=== PATIENT | female | born 1940 | race Caucasian/White ===

== ENCOUNTER 2018-02-17 13:54 | Outpatient (CLI) | payer MEDICARE ==
[2018-02-17 14:15] LABS: #Basophils 0.1 thou/uL (0.0-0.2); #Eosinphils 0.2 thou/uL (0.0-0.7); #Lymphocytes 1.8 thou/uL (1.20-3.40); #Monocytes 0.6 thou/uL (0.11-0.59); %Basophils 1.3 % (0.0-1.0); %Eosinophils 3.6 % (0.0-10.0); %Lymphocytes 31.8 % (21.0-51.0); %Monocytes 9.7 % (0.0-10.0); %Neutrophils 53.5 % (42.0-75.0); Hemoglobin 15.2 g/dL (12.0-16.0); Mean Corpuscular HGB CONC 32.9 g/dL (32.0-36.0); Mean Corpuscular Hemoglobin 30.4 pg (27.0-31.0); Mean Corpuscular Volume 92.4 fL (78.0-98.0); Mean Platelet Volume 10.5 fL (7.4-10.4); Platelet Count 218 thou/uL (130-400); RBC Distribution Width 11.5 % (11.5-14.5); Red Blood Cell (RBC) Count 5.01 mill/uL (4.20-5.40); White Blood Cell (WBC) Count 5.6 thou/uL (4.8-10.8)
[2018-02-17 14:30] LABS: ALT (SGPT) 18 U/L (8-55); AST (SGOT) 19 U/L (5-34); Albumin 4.3 g/dL (3.4-4.8); Alkaline Phosphatase 86 U/L (40-150); Anion Gap 15 mmol/L (10-20); BUN (Urea Nitrogen) 13 mg/dL (9.8-20.1); Calc. Creatinine Clearance 0 mL/min (70-130); Calcium 9.5 mg/dL (7.8-10.44); Carbon Dioxide 22 mmol/L (23-31); Chloride 106 mmol/L (98-107); Estimated GFR-MDRD 66; Globulin 2.7 g/dL (2.4-3.5); Glucose 93 mg/dL (83-110); Potassium 4.2 mmol/L (3.5-5.1); Sodium 139 mmol/L (136-145)
[2018-02-17 23:44] LABS: Folate (Folic Acid) 7.1 ng/mL (7.0-31.4)
== END 2018-02-17 13:55 | disposition home or self-care (01) ==
LOC: MADLABBHPM 13:54
PROVIDERS: ATTEND Family Medicine
DX: R01.1 Cardiac murmur, unspecified (principal); R42 Dizziness and giddiness; R41.3 Other amnesia
CPT/HCPCS: 36415; 80053; 82140; 82607; 82746; 84443; 85025; 93005; 93010

== ENCOUNTER 2018-06-02 09:25 | Outpatient (CLI) | payer MEDICARE ==
[2018-06-02 10:55] LABS: Prothrombin Time 12.9 SEC (12.0-14.7)
[2018-06-02 11:02] LABS: #Basophils 0.1 thou/uL (0.0-0.2); #Eosinphils 0.2 thou/uL (0.0-0.7); #Lymphocytes 1.3 thou/uL (1.20-3.40); #Monocytes 0.4 thou/uL (0.11-0.59); #Neutrophils 2.3 thou/uL (1.40-6.50); %Basophils 1.5 % (0.0-1.0); %Eosinophils 4.2 % (0.0-10.0); %Monocytes 8.9 % (0.0-10.0); %Neutrophils 54.4 % (42.0-75.0); Hemoglobin 14.2 g/dL (12.0-16.0); Mean Corpuscular Hemoglobin 29.3 pg (27.0-31.0); Mean Corpuscular Volume 91.7 fL (78.0-98.0); Mean Platelet Volume 9.9 fL (7.4-10.4); Platelet Count 166 thou/uL (130-400); RBC Distribution Width 12.5 % (11.5-14.5); Red Blood Cell (RBC) Count 4.86 mill/uL (4.20-5.40); White Blood Cell (WBC) Count 4.2 thou/uL (4.8-10.8)
[2018-06-02 11:04] LABS: Anion Gap 13 mmol/L (10-20); BUN (Urea Nitrogen) 11 mg/dL (9.8-20.1); Calc. Creatinine Clearance 0 mL/min (70-130); Carbon Dioxide 25 mmol/L (23-31); Chloride 106 mmol/L (98-107); Estimated GFR-MDRD 71; Glucose 79 mg/dL (83-110); Potassium 4.5 mmol/L (3.5-5.1); Sodium 139 mmol/L (136-145)
== END 2018-06-02 09:26 | disposition home or self-care (01) ==
LOC: MADLAB 09:25
PROVIDERS: ATTEND Internal Medicine Cardiovascular Disease
DX: I34.0 Nonrheumatic mitral (valve) insufficiency (principal)
CPT/HCPCS: 36415; 80048; 85025; 85610

== ENCOUNTER 2018-07-19 11:03 | Outpatient (CLI) | payer MEDICARE ==
[2018-07-19 11:29] LABS: Bilirubin Negative (Negative); Blood, Urine Negative (Negative); Clarity Clear (Clear); Glucose, Urine (Dipstick) Negative (Negative); Leukocyte Negative (Negative); Nitrite Negative (Negative); Protein, Urine (Dipstick) Negative (Neg-Trace); Urobilinogen 0.2 mg/dL (0.2-1.0)
[2018-07-19 11:32] LABS: Specific Gravity, Urine 1.006 (1.002-1.036)
[2018-07-19 11:38] LABS: Bacteria/HPF Rare-Few HPF (None Seen); RBC/HPF 0-3 HPF (0-3); Squamous Epithelial 0-3 HPF (0-3); WBC/HPF 0-3 HPF (0-3)
--- NOTE | 2018-07-19 11:38 | RAD ---
2 views chest: 07/19/2018 COMPARISON: 02/24/2013 HISTORY: Preoperative patient FINDINGS: There is a shoulder arthroplasty on the left. There is mild dextroscoliosis at the thoracol umbar junction. Heart and mediastinal contours are stable. There is atherosclerotic calcification of the aortic arch. Old lateral left-sided rib fractures are present. There is mild increased linear interstitial density. No pneumothorax or pleural fluid. No focal conso lidation or alveolar edema. IMPRESSION: No acute findings. Chronic/incidental findings as detailed above.
[2018-07-19 11:40] LABS: #Basophils 0.1 thou/uL (0.0-0.2); #Eosinphils 0.2 thou/uL (0.0-0.7); #Lymphocytes 1.2 thou/uL (1.20-3.40); #Monocytes 0.4 thou/uL (0.11-0.59); #Neutrophils 3.9 thou/uL (1.40-6.50); %Basophils 1.2 % (0.0-1.0); %Eosinophils 2.8 % (0.0-10.0); %Lymphocytes 21.1 % (21.0-51.0); %Monocytes 7.4 % (0.0-10.0); %Neutrophils 67.6 % (42.0-75.0); Mean Corpuscular Volume 90.7 fL (78.0-98.0); Mean Platelet Volume 8.7 fL (7.4-10.4); Platelet Count 200 thou/uL (130-400); RBC Distribution Width 12.4 % (11.5-14.5); Red Blood Cell (RBC) Count 4.82 mill/uL (4.20-5.40); White Blood Cell (WBC) Count 5.8 thou/uL (4.8-10.8)
[2018-07-19 11:42] LABS: PTT 26.6 SEC (22.9-36.1); Prothrombin Time 13.3 SEC (12.0-14.7)
[2018-07-19 11:48] LABS: Anion Gap 15 mmol/L (10-20); BUN (Urea Nitrogen) 9 mg/dL (9.8-20.1); Calc. Creatinine Clearance 0 mL/min (70-130); Calcium 8.9 mg/dL (7.8-10.44); Carbon Dioxide 21 mmol/L (23-31); Chloride 108 mmol/L (98-107); Estimated GFR-MDRD 72; Glucose 81 mg/dL (83-110); Potassium 4.3 mmol/L (3.5-5.1); Sodium 140 mmol/L (136-145)
== END 2018-07-19 11:04 | disposition home or self-care (01) ==
LOC: MADLAB 11:03
DX: Z01.818 Encounter for other preprocedural examination (principal); I34.0 Nonrheumatic mitral (valve) insufficiency
CPT/HCPCS: 36415; 71046; 80048; 81001; 85025; 85610; 85730

== ENCOUNTER 2018-08-23 11:55 | Outpatient (CLI) | payer MEDICARE ==
[2018-08-23 13:07] LABS: Prothrombin Time 53.1 SEC (12.0-14.7)
== END 2018-08-23 11:56 | disposition home or self-care (01) ==
LOC: MADLAB 11:55
PROVIDERS: ATTEND Surgery
DX: Z51.81 Encounter for therapeutic drug level monitoring (principal); Z79.01 Long term (current) use of anticoagulants
CPT/HCPCS: 85610

== ENCOUNTER 2018-08-23 15:23 | Outpatient (CLI) | payer MEDICARE ==
[2018-08-23 15:42] LABS: #Basophils 0.1 thou/uL (0.0-0.2); #Eosinphils 0.2 thou/uL (0.0-0.7); #Lymphocytes 2.1 thou/uL (1.20-3.40); #Neutrophils 5.9 thou/uL (1.40-6.50); %Basophils 1.2 % (0.0-1.0); %Eosinophils 2.2 % (0.0-10.0); %Lymphocytes 22.2 % (21.0-51.0); %Monocytes 10.9 % (0.0-10.0); %Neutrophils 63.5 % (42.0-75.0); Hemoglobin 11.2 g/dL (12.0-16.0); Mean Corpuscular Hemoglobin 27.8 pg (27.0-31.0); Mean Corpuscular Volume 86.6 fL (78.0-98.0); Platelet Count 547 thou/uL (130-400); RBC Distribution Width 12.5 % (11.5-14.5); Red Blood Cell (RBC) Count 4.05 mill/uL (4.20-5.40); White Blood Cell (WBC) Count 9.3 thou/uL (4.8-10.8)
[2018-08-23 16:04] LABS: Prothrombin Time 57.5 SEC (12.0-14.7)
[2018-08-23 16:14] LABS: INR-International Normal Ratio 6.7
== END 2018-08-23 15:24 | disposition home or self-care (01) ==
LOC: MADLABBHPM 15:23
PROVIDERS: ATTEND Family Medicine
DX: Z51.81 Encounter for therapeutic drug level monitoring (principal); Z79.01 Long term (current) use of anticoagulants; Z95.2 Presence of prosthetic heart valve
CPT/HCPCS: 36415; 85025

== ENCOUNTER 2018-08-26 15:14 | Outpatient (CLI) | payer MEDICARE ==
[2018-08-26 15:46] LABS: Prothrombin Time 41.8 SEC (12.0-14.7)
[2018-08-26 16:01] LABS: INR-International Normal Ratio 4.4
== END 2018-08-26 15:15 | disposition home or self-care (01) ==
LOC: MADLABBHPM 15:14
PROVIDERS: ATTEND Family Medicine
DX: Z51.81 Encounter for therapeutic drug level monitoring (principal); Z79.1 Long term (current) use of non-steroidal anti-inflammatories (NSAID)
CPT/HCPCS: 36415; 85610

== ENCOUNTER 2019-04-01 13:00 | Emergency (ER) | payer MEDICARE ==
[~2019-04-01 13:00] MED LIST: Sodium Chloride Irrig Solution 250 ML BOT ONE
--- NOTE | 2019-04-01 13:37 | CT ---
EXAM: Brain CT scan Without contrast: HISTORY: Injury COMPARISON: None FINDINGS: Atrophy and chronic white matter ischemic change. No focal mass or midline shift. No intra or extra-axial hemorrhage. The visualized sinuses and mastoids are clear of acute process. IMPRESSION: No mass or bleed or other significant acute intracranial process.
--- NOTE | 2019-04-01 13:42 | CT ---
EXAM: CT scan cervical spineWithout contrast: HISTORY: Injury COMPARISON: None FINDINGS: There is some scoliotic deformity of the upper thoracic lower cervical spine. No evidence for acute fracture or dislocation. No prevertebral soft tissue swelling. Pleural and pleural-based parenchymal changes in the apices having more chronic change. 1.1 cm left thyroid nodule. Significant spondylosis. Artifact somewhat lowers the sensitivity of this study. IMPRESSION: No evidence for acute fracture or facet dislocation or other significant acute process.
--- NOTE | 2019-04-01 13:52 | RAD ---
Exam: XR Knee Lt 3 View HISTORY: Left knee injury COMPARISON: None FINDINGS: No acute fracture, dislocation, or other acute osseous abnormality is identified. IMPRESSION: No acute osseous abnormality is identified.
--- NOTE | 2019-04-01 13:56 | RAD ---
EXAM: CHEST ONE VIEW HISTORY: Injury COMPARISON: 02/24/2013 FINDINGS: Cardiac silhouette is magnified by projection. Pulmonary vasculature is within normal limits. The rojelio gs are clear. Left glenohumeral prosthesis is now present. Remote left-sided rib fractures are again seen. No definite acute fracture is visualized. Vascular calcifications are seen in the thoraci c aorta. IMPRESSION: No acute cardiopulmonary process.
[2019-04-01 14:02] LABS: #Basophils 0.1 thou/uL (0.0-0.2); #Eosinphils 0.2 thou/uL (0.0-0.7); #Lymphocytes 0.9 thou/uL (1.20-3.40); #Monocytes 0.5 thou/uL (0.11-0.59); #Neutrophils 6.4 thou/uL (1.40-6.50); %Basophils 1.3 % (0.0-1.0); %Eosinophils 1.9 % (0.0-10.0); %Lymphocytes 11.4 % (21.0-51.0); %Monocytes 6.3 % (0.0-10.0); %Neutrophils 79.1 % (42.0-75.0); Hemoglobin 15.6 g/dL (12.0-16.0); Mean Corpuscular HGB CONC 30.8 g/dL (32.0-36.0); Mean Corpuscular Hemoglobin 28.4 pg (27.0-31.0); Mean Corpuscular Volume 92.3 fL (78.0-98.0); Mean Platelet Volume 9.6 fL (7.4-10.4); Platelet Count 234 thou/uL (130-400); RBC Distribution Width 12.4 % (11.5-14.5); White Blood Cell (WBC) Count 8.1 thou/uL (4.8-10.8)
[2019-04-01 14:09] LABS: INR-International Normal Ratio 0.9; Prothrombin Time 12.2 SEC (12.0-14.7)
[2019-04-01 14:20] LABS: ALT (SGPT) 41 U/L (8-55); AST (SGOT) 40 U/L (5-34); Albumin 4.3 g/dL (3.4-4.8); Alkaline Phosphatase 167 U/L (40-110); Anion Gap 19 mmol/L (10-20); BUN (Urea Nitrogen) 18 mg/dL (9.8-20.1); Bilirubin, Total 1.6 mg/dL (0.2-1.2); Calc. Creatinine Clearance 0 mL/min (70-130); Calcium 9.1 mg/dL (7.8-10.44); Carbon Dioxide 22 mmol/L (23-31); Chloride 104 mmol/L (98-107); Estimated GFR-MDRD 50; Globulin 3.5 g/dL (2.4-3.5); Glucose 105 mg/dL (83-110); Potassium 4.7 mmol/L (3.5-5.1); Protein, Total 7.8 g/dL (6.0-8.3); Sodium 140 mmol/L (136-145)
[2019-04-01] MEDS ORDERED: Lidocaine 1% w/Epinephrine 1:100K 20 ML VIAL ONE (14:53)
[2019-04-01] MEDS ORDERED: Adacel (T-DAP) 0.5 ML SYRINGE ONE (15:23)
== END 2019-04-01 15:45 | disposition home or self-care (01) ==
LOC: MADERS 13:00
DX: S01.312A Laceration without foreign body of left ear, initial encounter (principal); S80.01XA Contusion of right knee, initial encounter; I25.10 Atherosclerotic heart disease of native coronary artery without angina pectoris; I10 Essential (primary) hypertension; E78.5 Hyperlipidemia, unspecified; Z23 Encounter for immunization; Z79.82 Long term (current) use of aspirin; Z79.899 Other long term (current) drug therapy; Z87.891 Personal history of nicotine dependence; W19.XXXA Unspecified fall, initial encounter
CPT/HCPCS: 12011; 70450; 71045; 72125; 80053; 84484; 85025; 85610; 90471; 90715; 93005

== ENCOUNTER 2019-04-06 10:36 | Outpatient (CLI) | payer MEDICARE ==
--- NOTE | 2019-04-06 11:08 | RAD ---
EXAM: XR Hip Lt 2-3 View PROVIDED CLINICAL HISTORY: Pain status post injury COMPARISON: 03/01/2019 FINDINGS: Nondisplaced fractures of the left superior and inferior pubic rami are demonstrated. No additional f racture is evident. Left hip joint space appears preserved. Surgical clips overlie the left inguinal region. IMPRESSION: Nondisplaced left superior and inferior pubic rami fractures.
[2019-04-06 11:44] LABS: ALT (SGPT) 43 U/L (8-55); AST (SGOT) 36 U/L (5-34); Albumin 3.9 g/dL (3.4-4.8); Alkaline Phosphatase 130 U/L (40-110); Anion Gap 15 mmol/L (10-20); BUN (Urea Nitrogen) 14 mg/dL (9.8-20.1); Bilirubin, Total 1.6 mg/dL (0.2-1.2); Calc. Creatinine Clearance 0 mL/min (70-130); Calcium 9.1 mg/dL (7.8-10.44); Carbon Dioxide 25 mmol/L (23-31); Cardiac Risk 2.5 (Less than 4.5); Chloride 103 mmol/L (98-107); Cholesterol 141 mg/dl (< 200 Desired); Estimated GFR-MDRD 69; Globulin 2.8 g/dL (2.4-3.5); Glucose 90 mg/dL (83-110); HDL Cholesterol 57 mg/dL (>60 Neg Risk); LDL Cholesterol, Calculated 67 mg/dL; Potassium 4.5 mmol/L (3.5-5.1); Protein, Total 6.7 g/dL (6.0-8.3); Sodium 138 mmol/L (136-145); Triglycerides 86 mg/dL (Less than 150)
[2019-04-06 17:10] LABS: Hemoglobin A1c 5.1 % (4.0-6.0)
== END 2019-04-06 10:37 | disposition home or self-care (01) ==
LOC: MADLAB 10:36
PROVIDERS: ATTEND Family Medicine
DX: G45.9 Transient cerebral ischemic attack, unspecified (principal); M25.552 Pain in left hip; S32.592A Other specified fracture of left pubis, initial encounter for closed fracture
CPT/HCPCS: 36415; 80053; 80061; 83036

== ENCOUNTER 2019-05-11 11:04 | Outpatient (CLI) | payer MEDICARE ==
[2019-05-11 15:09] LABS: Prothrombin Time 12.8 SEC (12.0-14.7)
== END 2019-05-11 11:05 | disposition home or self-care (01) ==
LOC: MADLABBHPM 11:04
PROVIDERS: ATTEND Family Medicine
DX: Z51.81 Encounter for therapeutic drug level monitoring (principal); Z79.01 Long term (current) use of anticoagulants
CPT/HCPCS: 36415; 85610; 85730

== ENCOUNTER 2019-05-14 13:36 | Emergency (ER) | payer MEDICARE | END 2019-05-14 14:09 | disposition home or self-care (01) | LOC: MADERS 13:36 | DX: K59.00 Constipation, unspecified (principal); E78.5 Hyperlipidemia, unspecified; I10 Essential (primary) hypertension; I25.10 Atherosclerotic heart disease of native coronary artery without angina pectoris; Z87.891 Personal history of nicotine dependence; Z79.899 Other long term (current) drug therapy; Z79.82 Long term (current) use of aspirin | CPT/HCPCS: 99283 ==

== ENCOUNTER 2019-05-15 09:33 | Outpatient (CLI) | payer MEDICARE ==
[2019-05-15 09:44] LABS: INR-International Normal Ratio 1.1; Prothrombin Time 14.5 SEC (12.0-14.7)
== END 2019-05-15 09:34 | disposition home or self-care (01) ==
LOC: MADLABBHPM 09:33
PROVIDERS: ATTEND Family Medicine
DX: Z51.81 Encounter for therapeutic drug level monitoring (principal); Z79.02 Long term (current) use of antithrombotics/antiplatelets
CPT/HCPCS: 85610

== ENCOUNTER 2019-05-19 16:41 | Outpatient (CLI) | payer MEDICARE ==
[2019-05-19 16:46] LABS: INR-International Normal Ratio 2.8; Prothrombin Time 29.5 SEC (12.0-14.7)
== END 2019-05-19 16:42 | disposition home or self-care (01) ==
LOC: MADLAB 16:41
PROVIDERS: ATTEND Family Medicine
DX: Z51.81 Encounter for therapeutic drug level monitoring (principal); Z79.02 Long term (current) use of antithrombotics/antiplatelets
CPT/HCPCS: 85610

== ENCOUNTER 2019-05-26 10:26 | Outpatient (CLI) | payer MEDICARE ==
[2019-05-26 10:59] LABS: Prothrombin Time 47.2 SEC (12.0-14.7)
[2019-05-26 11:07] LABS: INR-International Normal Ratio 5.2
== END 2019-05-26 10:27 | disposition home or self-care (01) ==
LOC: MADLABBHPM 10:26
PROVIDERS: ATTEND Internal Medicine Cardiovascular Disease
DX: Z51.81 Encounter for therapeutic drug level monitoring (principal); Z79.02 Long term (current) use of antithrombotics/antiplatelets
CPT/HCPCS: 85610

== ENCOUNTER 2019-06-02 10:17 | Outpatient (CLI) | payer MEDICARE ==
[2019-06-02 10:37] LABS: PTT 40.4 SEC (22.9-36.1)
[2019-06-02 10:38] LABS: INR-International Normal Ratio 3.7; Prothrombin Time 36.2 SEC (12.0-14.7)
== END 2019-06-02 10:18 | disposition home or self-care (01) ==
LOC: MADLABBHPM 10:17
PROVIDERS: ATTEND Family Medicine
DX: Z51.81 Encounter for therapeutic drug level monitoring (principal); Z79.01 Long term (current) use of anticoagulants
CPT/HCPCS: 36415; 85610; 85730

== ENCOUNTER 2019-06-09 10:03 | Outpatient (CLI) | payer MEDICARE ==
[2019-06-09 10:28] LABS: INR-International Normal Ratio 2.7; PTT 30.9 SEC (22.9-36.1); Prothrombin Time 28.4 SEC (12.0-14.7)
== END 2019-06-09 10:04 | disposition home or self-care (01) ==
LOC: MADLABBHPM 10:03
PROVIDERS: ATTEND Family Medicine
DX: Z51.81 Encounter for therapeutic drug level monitoring (principal); Z79.01 Long term (current) use of anticoagulants
CPT/HCPCS: 36415; 85610; 85730

== ENCOUNTER 2019-06-16 10:30 | Outpatient (CLI) | payer MEDICARE ==
[2019-06-16 10:58] LABS: INR-International Normal Ratio 2.9; PTT 34.9 SEC (22.9-36.1); Prothrombin Time 30.2 sec (12.0-14.7)
== END 2019-06-16 10:31 | disposition home or self-care (01) ==
LOC: MADLAB 10:30
PROVIDERS: ATTEND Family Medicine
DX: Z51.81 Encounter for therapeutic drug level monitoring (principal); Z79.01 Long term (current) use of anticoagulants
CPT/HCPCS: 36415; 85610; 85730

== ENCOUNTER 2019-06-23 10:06 | Outpatient (CLI) | payer MEDICARE ==
[2019-06-23 10:29] LABS: PTT 38.6 SEC (22.9-36.1)
[2019-06-23 11:03] LABS: Prothrombin Time 40.3 sec (12.0-14.7)
[2019-06-23 11:27] LABS: INR-International Normal Ratio 4.2
== END 2019-06-23 10:07 | disposition home or self-care (01) ==
LOC: MADLAB 10:06
PROVIDERS: ATTEND Family Medicine
DX: Z51.81 Encounter for therapeutic drug level monitoring (principal); Z79.01 Long term (current) use of anticoagulants
CPT/HCPCS: 36415; 85610; 85730

== ENCOUNTER 2019-06-28 13:02 | Emergency (ER) | payer MEDICARE ==
[~2019-06-28 13:02] MED LIST changes: -Sodium Chloride Irrig Solution 250 ML BOT ONE; +Sterile Water Irrigation 250 ML BOT ONE
[2019-06-28] MEDS ORDERED: Lidocaine 1% w/Epinephrine 1:100K 20 ML VIAL ONE (13:18)
== END 2019-06-28 13:45 | disposition home or self-care (01) ==
LOC: MADERS 13:02
DX: S61.452A Open bite of left hand, initial encounter (principal); I25.10 Atherosclerotic heart disease of native coronary artery without angina pectoris; E78.5 Hyperlipidemia, unspecified; I10 Essential (primary) hypertension; Z87.891 Personal history of nicotine dependence; W54.0XXA Bitten by dog, initial encounter
CPT/HCPCS: 12001

== ENCOUNTER 2019-06-30 09:07 | Outpatient (CLI) | payer MEDICARE ==
[2019-06-30 09:55] LABS: INR-International Normal Ratio 3.7; PTT 46.6 SEC (22.9-36.1); Prothrombin Time 36.2 sec (12.0-14.7)
== END 2019-06-30 09:08 | disposition home or self-care (01) ==
LOC: MADRAD 09:07
PROVIDERS: ATTEND Family Medicine
DX: Z51.81 Encounter for therapeutic drug level monitoring (principal); Z79.01 Long term (current) use of anticoagulants
CPT/HCPCS: 36415; 85610; 85730

== ENCOUNTER 2019-07-07 10:36 | Outpatient (CLI) | payer MEDICARE ==
[2019-07-07 11:42] LABS: INR-International Normal Ratio 2.7; PTT 34.3 sec (22.9-36.1); Prothrombin Time 28.4 sec (12.0-14.7)
== END 2019-07-07 10:37 | disposition home or self-care (01) ==
LOC: MADLAB 10:36
PROVIDERS: ATTEND Family Medicine
DX: Z51.81 Encounter for therapeutic drug level monitoring (principal); Z79.01 Long term (current) use of anticoagulants
CPT/HCPCS: 36415; 85610; 85730

== ENCOUNTER 2019-07-14 11:50 | Outpatient (CLI) | payer MEDICARE ==
[2019-07-14 12:19] LABS: INR-International Normal Ratio 2.7; PTT 32.9 sec (22.9-36.1); Prothrombin Time 28.1 sec (12.0-14.7)
[2019-07-14 17:42] LABS: Follow-up Chemistry Comp? YES; Follow-up Result - Chemistry REPORT FAXED
== END 2019-07-14 11:51 | disposition home or self-care (01) ==
LOC: MADLAB 11:50
PROVIDERS: ATTEND Family Medicine
DX: Z51.81 Encounter for therapeutic drug level monitoring (principal); Z71.89 Other specified counseling; Z79.01 Long term (current) use of anticoagulants
CPT/HCPCS: 36415; 82607; 85610; 85730

== ENCOUNTER 2019-07-21 11:33 | Outpatient (CLI) | payer MEDICARE ==
[2019-07-21 12:43] LABS: INR-International Normal Ratio 2.4; Prothrombin Time 26.3 sec (12.0-14.7)
== END 2019-07-21 11:34 | disposition home or self-care (01) ==
LOC: MADLAB 11:33
PROVIDERS: ATTEND Family Medicine
DX: Z51.81 Encounter for therapeutic drug level monitoring (principal); Z79.01 Long term (current) use of anticoagulants
CPT/HCPCS: 36415; 85610; 85730

== ENCOUNTER 2019-07-28 10:33 | Outpatient (CLI) | payer MEDICARE ==
[2019-07-28 11:00] LABS: INR-International Normal Ratio 2.7; Prothrombin Time 28.5 sec (12.0-14.7)
== END 2019-07-28 10:34 | disposition home or self-care (01) ==
LOC: MADLAB 10:33
PROVIDERS: ATTEND Family Medicine
DX: Z51.81 Encounter for therapeutic drug level monitoring (principal); Z79.01 Long term (current) use of anticoagulants
CPT/HCPCS: 36415; 85610; 85730

== ENCOUNTER 2019-08-11 08:40 | Outpatient (CLI) | payer MEDICARE ==
[2019-08-11 09:13] LABS: INR-International Normal Ratio 2.9; PTT 33.7 sec (22.9-36.1); Prothrombin Time 29.8 sec (12.0-14.7)
== END 2019-08-11 08:41 | disposition home or self-care (01) ==
LOC: MADLAB 08:40
PROVIDERS: ATTEND Family Medicine
DX: Z51.81 Encounter for therapeutic drug level monitoring (principal); Z79.01 Long term (current) use of anticoagulants
CPT/HCPCS: 36415; 85610; 85730

== ENCOUNTER 2019-08-25 17:29 | Outpatient (CLI) | payer MEDICARE ==
[2019-08-25 17:39] LABS: INR-International Normal Ratio 2.7; Prothrombin Time 28.7 sec (12.0-14.7)
== END 2019-08-25 17:30 | disposition home or self-care (01) ==
LOC: MADLAB 17:29
PROVIDERS: ATTEND Family Medicine
DX: Z51.81 Encounter for therapeutic drug level monitoring (principal); Z79.01 Long term (current) use of anticoagulants
CPT/HCPCS: 36415; 85610

== ENCOUNTER 2022-04-03 12:28 | Emergency (ER) | payer MEDICARE ==
[~2022-04-03 12:28] MED LIST changes: +Iopamidol 370 76% 100 ML VIAL ONE; -Sterile Water Irrigation 250 ML BOT ONE
[2022-04-03 12:54] LABS: #Basophils 0.1 thou/uL (0.0-0.2); #Eosinphils 0.2 thou/uL (0.0-0.7); #Lymphocytes 1.8 thou/uL (1.20-3.40); #Monocytes 0.7 thou/uL (0.11-0.59); #Neutrophils 4.1 thou/uL (1.40-6.50); %Eosinophils 3.1 % (0.0-10.0); %Monocytes 9.5 % (0.0-10.0); %Neutrophils 60.4 % (42.0-75.0); Hemoglobin 15.2 g/dL (12.0-16.0); Mean Corpuscular HGB CONC 33.4 g/dL (32.0-36.0); Mean Corpuscular Hemoglobin 29.2 pg (27.0-31.0); Mean Corpuscular Volume 87.3 fl (78.0-98.0); Mean Platelet Volume 11.6 fL (7.4-10.4); Platelet Count 202 10x3/uL (130-400); RBC Distribution Width 12.1 % (11.5-14.5); Red Blood Cell (RBC) Count 5.21 mill/uL (4.20-5.40); White Blood Cell (WBC) Count 6.8 10x3/uL (4.8-10.8)
[2022-04-03 13:01] LABS: INR-International Normal Ratio 1.7; Prothrombin Time 20.7 sec (12.0-14.7)
[2022-04-03 13:02] LABS: PTT 30.6 sec (22.9-36.1)
[2022-04-03 13:17] LABS: ALT (SGPT) 43 U/L (8-55); AST (SGOT) 35 U/L (5-34); Albumin 4.1 g/dL (3.4-4.8); Alkaline Phosphatase 146 U/L (40-110); Anion Gap 14 mmol/L (10-20); BUN (Urea Nitrogen) 9 mg/dL (9.8-20.1); Bilirubin, Total 2.6 mg/dL (0.2-1.2); Calc. Creatinine Clearance 0 mL/min (70-130); Carbon Dioxide 25 mmol/L (23-31); Chloride 106 mmol/L (98-107); Estimated GFR 80; Globulin 2.8 g/dL (2.4-3.5); Glucose 126 mg/dL (83-110); Magnesium 2.2 mg/dL (1.6-2.6); Potassium 4.4 mmol/L (3.5-5.1); Protein, Total 6.9 g/dL (5.8-8.1); Sodium 141 mmol/L (136-145)
[2022-04-03] MEDS ORDERED: Aspirin 325 MG TAB ONE (13:21)
[2022-04-03 13:48] LABS: Bilirubin Negative (Negative); Blood, Urine Negative (Negative); Clarity Clear (Clear); Glucose, Urine (Dipstick) Negative (Negative); Ketone, Urine Negative (Negative); Leukocyte Trace (Negative); Nitrite Negative (Negative); Protein, Urine (Dipstick) Negative (Neg-Trace); Specific Gravity, Urine 1.015 (1.005-1.030); Urobilinogen 0.2 mg/dL (Less than 2); pH, Urine 7.5 (5.0-9.0)
[2022-04-03] MEDS ORDERED: Sodium Chloride 0.9% 500 ML ONE (13:58)
[2022-04-03 13:59] LABS: Bacteria/HPF Rare-Few HPF (None Seen); RBC/HPF None Seen HPF (0-3)
[2022-04-03] MEDS ORDERED: Atorvastatin Calcium 40 MG TAB PO SCH (17:15)
== END 2022-04-03 19:02 | disposition short-term general hospital (02) ==
LOC: MADERS 12:28
DX: R42 Dizziness and giddiness (principal); R47.1 Dysarthria and anarthria; R13.0 Aphagia; I65.22 Occlusion and stenosis of left carotid artery; I25.10 Atherosclerotic heart disease of native coronary artery without angina pectoris; E78.5 Hyperlipidemia, unspecified; I10 Essential (primary) hypertension; Z87.891 Personal history of nicotine dependence
CPT/HCPCS: 36416; 70450; 70496; 70498; 71045; 80053; 81003; 81015; 83735; 83880; 84484; 85025; 85610; 85730; 87086; 93005; J7030; Q9967

== ENCOUNTER 2022-09-15 13:33 | Emergency (ER) | payer MEDICARE ==
[2022-09-15 15:14] LABS: #Basophils 0.1 thou/uL (0.0-0.2); #Eosinphils 0.2 thou/uL (0.0-0.7); #Lymphocytes 1.6 thou/uL (1.20-3.40); #Monocytes 0.5 thou/uL (0.11-0.59); #Neutrophils 3.5 thou/uL (1.40-6.50); %Basophils 0.9 % (0.0-1.0); %Eosinophils 2.9 % (0.0-10.0); %Lymphocytes 27.5 % (21.0-51.0); %Monocytes 9.2 % (0.0-10.0); %Neutrophils 59.5 % (42.0-75.0); Hemoglobin 14.3 g/dL (12.0-16.0); Mean Corpuscular HGB CONC 31.1 g/dL (32.0-36.0); Mean Corpuscular Hemoglobin 28.2 pg (27.0-31.0); Mean Corpuscular Volume 90.7 fl (78.0-98.0); Mean Platelet Volume 13.9 fL (7.4-10.4); Platelet Adequacy Comment Appears Adequate; Platelet Count 148 10x3/uL (130-400); RBC Distribution Width 13.5 % (11.5-14.5); Red Blood Cell (RBC) Count 5.06 mill/uL (4.20-5.40); White Blood Cell (WBC) Count 5.9 10x3/uL (4.8-10.8)
[2022-09-15 15:16] LABS: ALT (SGPT) 12 U/L (8-55); AST (SGOT) 20 U/L (5-34); Albumin 4.2 g/dL (3.4-4.8); Alkaline Phosphatase 140 U/L (40-110); Anion Gap 18 mmol/L (10-20); BUN (Urea Nitrogen) 10 mg/dL (9.8-20.1); Bilirubin, Total 1.9 mg/dL (0.2-1.2); Calc. Creatinine Clearance 0 mL/min (70-130); Calcium 9.5 mg/dL (7.8-10.44); Carbon Dioxide 21 mmol/L (23-31); Chloride 110 mmol/L (98-107); Estimated GFR 87; Globulin 2.9 g/dL (2.4-3.5); Glucose 84 mg/dL (83-110); Potassium 4.2 mmol/L (3.5-5.1); Protein, Total 7.1 g/dL (5.8-8.1); Sodium 145 mmol/L (136-145)
== END 2022-09-15 16:05 | disposition home or self-care (01) ==
LOC: MADERS 13:33
DX: M62.81 Muscle weakness (generalized) (principal); F03.90 Unspecified dementia, unspecified severity, without behavioral disturbance, psychotic disturbance, mood disturbance, and anxiety; R29.701 NIHSS score 1; I48.91 Unspecified atrial fibrillation; I25.10 Atherosclerotic heart disease of native coronary artery without angina pectoris; I11.0 Hypertensive heart disease with heart failure; I50.9 Heart failure, unspecified; E78.00 Pure hypercholesterolemia, unspecified; M19.90 Unspecified osteoarthritis, unspecified site; Z87.891 Personal history of nicotine dependence; Z79.01 Long term (current) use of anticoagulants; Z79.899 Other long term (current) drug therapy; Z86.73 Personal history of transient ischemic attack (TIA), and cerebral infarction without residual deficits; Z95.5 Presence of coronary angioplasty implant and graft
CPT/HCPCS: 36415; 70450; 71045; 80053; 84484; 85025; 93005

== ENCOUNTER 2022-10-11 11:26 | Emergency (ER) | payer MEDICARE | END 2022-10-11 12:50 | disposition home or self-care (01) | LOC: MADERS 11:26 | DX: S52.572A Other intraarticular fracture of lower end of left radius, initial encounter for closed fracture (principal); S52.612A Displaced fracture of left ulna styloid process, initial encounter for closed fracture; I95.9 Hypotension, unspecified; I11.0 Hypertensive heart disease with heart failure; I50.9 Heart failure, unspecified; I25.10 Atherosclerotic heart disease of native coronary artery without angina pectoris; E78.5 Hyperlipidemia, unspecified; Z87.891 Personal history of nicotine dependence; Z79.01 Long term (current) use of anticoagulants; Z79.899 Other long term (current) drug therapy; W01.0XXA Fall on same level from slipping, tripping and stumbling without subsequent striking against object, initial encounter | CPT/HCPCS: 25600 ==